=== PATIENT | female | born 1965 | race Caucasian/White ===

== ENCOUNTER → 2017-05-04 | Outpatient (CLI) | payer BC ==
[~2017-05-04] MED LIST: GLUCOPHAGE500 MG/TAB PO; LEVOTHROID PO; LEVOXYL0.1 MG PO; MASON NATURAL500 MG PO; MULTIVITAMIN FO1 CAP PO; SYNTHROID0.1 MG PO; VALIUM 5MG T5 MG/TAB PO; ZOCOR 10MG10 MG PO
== END ==
LOC: MC.RAD 08:40
DX: Z12.31 Encounter for screening mammogram for malignant neoplasm of breast (principal)

== ENCOUNTER 2018-06-05 13:46 | Emergency (ER) | payer BC ==
[~2018-06-05] VITALS: Ht 162.6 cm; Wt 115.9 kg
[2018-06-05 13:48] VITALS: BP 138/85; TEMP 98
[2018-06-05] MEDS ORDERED: SYNTHROID0.1 MG/TAB PO (13:57)
[2018-06-05] MEDS ORDERED: GLUCOPHAGE1000 MG PO (13:58)
[2018-06-05] MEDS ORDERED: CIPRO 500MG TA500 MG PO (13:59)
[2018-06-05] MEDS ORDERED: FLAGYL500 MG PO (13:59)
[2018-06-05 14:18] LABS: COLLECTION METHOD CLEAN CATCH
[2018-06-05 14:34] LABS: BASO # 0.1 (0.0-0.2); EOS # 0.5 (0.0-0.7); EOS % 6.5 % (0-4.0); GRAN % 68.7 % (42.2-75.2); HEMATOCRIT 41.5 % (37.0-47.0); HEMOGLOBIN 14.2 g/dl (12.5-16.0); LYMPH % 13.5 % (20.0-51.0); MEAN CELL VOLUME 91 fl (80.0-100.0); MEAN CORPUSCULAR HEMOGLOBIN 31 pg (27.0-31.0); MEAN CORPUSCULAR HGB CONC 34 g/dl (33.0-37.0); MEAN PLATELET VOLUME 9.4 fl (7.4-10.4); MONO # 0.7 (0.1-0.6); MONO % 9.9 % (1.7-9.3); PLATELET COUNT 337 K/mm3 (130-400); RED BLOOD COUNT 4.54 M/mm3 (4.10-5.30); REDCELL DISTRIBUTION WIDTH-CV 12.6 % (11.5-14.5)
[2018-06-05 14:41] LABS: SQUAMOUS EPITHELIAL 0-2 /hpf; URINE BACTERIA None Seen /hpf; URINE RBC 0-2 /hpf
[2018-06-05 14:43] LABS: URINE COLOR Straw
[2018-06-05 14:44] LABS: PH 9 (5-8); URINE APPEARANCE Clear; URINE BILIRUBIN Negative (NEGATIVE); URINE BLOOD Negative (NEGATIVE); URINE GLUCOSE Negative (NEGATIVE); URINE KETONE Negative (NEGATIVE); URINE LEUKOCYTE ESTERASE Negative (NEGATIVE); URINE NITRATE Negative (NEGATIVE); URINE PROTEIN(semi-quant) Negative (NEGATIVE); URINE UROBILINOGEN Negative (NEGATIVE)
[2018-06-05 14:47] LABS: BILIRUBIN,TOTAL 0.2 mg/dL (0.0-1.0); CALCIUM 8.7 mg/dL (8.4-10.2); CREATININE, serum 0.69 mg/dL (0.52-1.25); POTASSIUM 3.5 mmol/L (3.4-5.0); TOTAL PROTEIN 7.8 gm/dL (6.4-8.2)
[2018-06-05 15:36] VITALS: PULSE 76
== END 2018-06-05 15:37 | disposition home or self-care (01) ==
LOC: COL.ER 13:46
PROVIDERS: Family Medicine
DX: K57.92 Diverticulitis of intestine, part unspecified, without perforation or abscess without bleeding (principal); R53.83 Other fatigue; Z79.84 Long term (current) use of oral hypoglycemic drugs
CPT/HCPCS: J2405; J7030

== ENCOUNTER → 2018-06-07 | Outpatient (CLI) | payer BC ==
[~2018-06-07] MED LIST changes: +CIPRO 500MG TA500 MG PO; +FLAGYL500 MG PO; +GLUCOPHAGE1000 MG PO; +SYNTHROID0.1 MG/TAB PO
== END ==
LOC: MC.RAD 06-06 07:20
DX: Z12.31 Encounter for screening mammogram for malignant neoplasm of breast (principal)

== ENCOUNTER → 2020-04-11 | Outpatient (CLI) | payer BC | LOC: MC.RAD 16:00 | DX: Z12.31 Encounter for screening mammogram for malignant neoplasm of breast (principal) ==

== ENCOUNTER 2021-02-14 21:00 | Emergency (ER) | payer BC ==
[~2021-02-14] VITALS: Ht 157.5 cm; Wt 120.5 kg
[~2021-02-14 21:00] MED LIST changes: +SYNTHROID0.088 MG/T PO; -SYNTHROID0.1 MG/TAB PO
[2021-02-14 21:35] VITALS: TEMP 98.1
[2021-02-14] MEDS ORDERED: CRESTOR5 MG PO (21:54)
[2021-02-14 22:07] LABS: COLLECTION METHOD CLEAN CATCH
[2021-02-14 22:15] LABS: PH 6 (5-8); SQUAMOUS EPITHELIAL None Seen /hpf; URINE APPEARANCE Clear; URINE BACTERIA None Seen /hpf; URINE BILIRUBIN Negative (NEGATIVE); URINE BLOOD Negative (NEGATIVE); URINE COLOR Straw; URINE GLUCOSE Negative (NEGATIVE); URINE KETONE Negative (NEGATIVE); URINE LEUKOCYTE ESTERASE Negative (NEGATIVE); URINE NITRATE Negative (NEGATIVE); URINE PROTEIN(semi-quant) Negative (NEGATIVE); URINE RBC None Seen /hpf; URINE UROBILINOGEN Negative (NEGATIVE)
[2021-02-14 22:21] LABS: BASO # 0.1 (0.0-0.2); BASO % 0.8 % (0.0-2.0); EOS # 0.3 (0.0-0.7); EOS % 4.4 % (0-4.0); GRAN # 4.1 (1.4-6.5); GRAN % 61.7 % (42.2-75.2); HEMATOCRIT 44.6 % (37.0-47.0); HEMOGLOBIN 14.7 g/dl (12.5-16.0); LYMPH # 1.5 (1.2-3.4); LYMPH % 22.4 % (20.0-51.0); MEAN CELL VOLUME 93 fl (80.0-100.0); MEAN CORPUSCULAR HEMOGLOBIN 31 pg (27.0-31.0); MEAN CORPUSCULAR HGB CONC 33 g/dl (33.0-37.0); MEAN PLATELET VOLUME 9.2 fl (7.4-10.4); MONO # 0.7 (0.1-0.6); MONO % 10.2 % (1.7-9.3); PLATELET COUNT 292 K/mm3 (130-400); RED BLOOD COUNT 4.78 M/mm3 (4.10-5.30); REDCELL DISTRIBUTION WIDTH-CV 12.4 % (11.5-14.5)
[2021-02-14 22:34] LABS: ALBUMIN 4.3 gm/dL (3.5-5.0); BILIRUBIN,TOTAL 0.2 mg/dL (0.0-1.0); C-REACTIVE PROTEIN 0.6 mg/dL (0.0-0.9); CALCIUM 9.1 mg/dL (8.4-10.2); CREATININE, serum 0.71 (0.52-1.25); POTASSIUM 3.9 mmol/L (3.4-5.0); TOTAL PROTEIN 8.2 gm/dL (6.4-8.2)
[2021-02-14 23:58] VITALS: BP 136/64; PULSE 88
== END 2021-02-14 23:45 | disposition home or self-care (01) ==
LOC: COL.ER 21:00
PROVIDERS: Physician Assistant
DX: M79.604 Pain in right leg (principal); M79.605 Pain in left leg; E66.9 Obesity, unspecified; E03.9 Hypothyroidism, unspecified; E78.5 Hyperlipidemia, unspecified; Z87.891 Personal history of nicotine dependence; Z88.8 Allergy status to other drugs, medicaments and biological substances; Z79.899 Other long term (current) drug therapy; Z79.890 Hormone replacement therapy
CPT/HCPCS: J7030

== ENCOUNTER 2021-06-13 12:56 | Outpatient (CLI) | payer BC ==
[2021-06-13] VITALS (7 sets, daily range): BP systolic 92–143; BP diastolic 60–98; PULSE 77–90; TEMP 99.3
[~2021-06-13] VITALS: Ht 157.5 cm; Wt 92.8 kg
[~2021-06-13 12:56] MED LIST changes: +CRESTOR5 MG PO
[2021-06-13] MEDS ORDERED: PRINIVIL10 MG PO (14:25)
[2021-06-13] MEDS ORDERED: ASPIRIN E.C. 8181 MG PO (14:25)
== END 2021-06-13 15:30 | disposition home or self-care (01) ==
LOC: EUO 12:56
DX: J02.9 Acute pharyngitis, unspecified (principal)
CPT/HCPCS: Q0244

== ENCOUNTER 2021-08-19 16:30 | Outpatient (RCR) | payer BC ==
[~2021-08-19 16:30] MED LIST changes: +ASPIRIN E.C. 8181 MG PO; +PRINIVIL10 MG PO
== END 2021-08-20 14:06 | disposition home or self-care (01) ==
LOC: WSPT 16:30
DX: M25.561 Pain in right knee (principal); M25.562 Pain in left knee

== ENCOUNTER → 2022-02-12 | Outpatient (CLI) | payer BC | LOC: MC.RAD 16:24 | DX: Z12.31 Encounter for screening mammogram for malignant neoplasm of breast (principal) ==

== ENCOUNTER → 2024-06-13 | Outpatient (CLI) | payer BC | LOC: MC.RAD 07:01 | DX: Z12.31 Encounter for screening mammogram for malignant neoplasm of breast (principal) ==